=== PATIENT | female | born 1960 | race Caucasian/White ===

== ENCOUNTER 2020-06-08 19:29 | Emergency (ER) | payer MEDICARE ==
[2020-06-08 20:04] LABS: BASOPHIL 1.2 % (0-2); EOSINOPHIL 3.7 % (0-5); HCT 36.4 % (37.0-47.0); HGB 12.3 g/dl (12.5-16.0); MCH 29.6 pg (25.0-31.0); MCHC 33.8 g/dL (32.0-36.0); MCV 87.5 fL (78.0-100.0); MONOCYTE 10.7 % (0-12); NEUTROPHIL 51.1 % (41-80); NRBC 0; PLT 285 K/uL (150-400); RBC 4.16 M/uL (4.20-5.40); RDW 13.9 % (11.5-14.0); WBC 9.1 K/uL (4.0-10.5)
[2020-06-08 20:22] LABS: PROTHROMBIN TIME 12.5 SECONDS (11.4-13.6)
[2020-06-08 20:23] LABS: PTT 27.5 SECONDS (22.2-34.7)
[2020-06-08 20:30] LABS: ALBUMIN 3.2 g/dL (3.4-5.0); BILIRUBIN - TOTAL 0.2 mg/dL (0.2-1.0); BUN/CREAT RATIO (CALC) 8.6 RATIO; CREATININE 0.7 mg/dL (0.51-0.95); GLOBULIN (CALCULATION) 3.4 g/dL; POTASSIUM 3.8 mmol/L (3.5-5.1); TOTAL PROTEIN 6.6 g/dL (6.4-8.2)
[2020-06-08 20:35] LABS: LACTIC ACID 1.2 mmol/L (0.4-1.9)
[2020-06-08] MEDS ORDERED: NORCO 5-325 TA1 EACH PO (23:12)
== END 2020-06-08 23:41 | disposition home or self-care (01) ==
LOC: FER 19:29
PROVIDERS: Emergency Medicine Emergency Medical Services
DX: S02.31XA Fracture of orbital floor, right side, initial encounter for closed fracture (principal); R29.707 NIHSS score 7; I10 Essential (primary) hypertension; J44.9 Chronic obstructive pulmonary disease, unspecified; F17.200 Nicotine dependence, unspecified, uncomplicated; Z79.899 Other long term (current) drug therapy; Z86.73 Personal history of transient ischemic attack (TIA), and cerebral infarction without residual deficits; Z79.82 Long term (current) use of aspirin; W19.XXXA Unspecified fall, initial encounter; Y92.009 Unspecified place in unspecified non-institutional (private) residence as the place of occurrence of the external cause
CPT/HCPCS: 36415; 70450; 70486; 71045; 71250; 72125; 73560; 80053; 82550; 83605; 84484; 85025; 85610; 85730; 93005; J1885; J2270; J2405

== ENCOUNTER 2021-11-20 11:08 | Emergency (ER) | payer MEDICARE ==
[~2021-11-20 11:08] MED LIST: NORCO 5-325 TA1 EACH PO
[2021-11-20] MEDS ORDERED: MAXI-TUSS AC L473 ML PO (11:59)
[2021-11-20] MEDS ORDERED: PAXLOVID 150-11 EACH PO (11:59)
== END 2021-11-20 12:21 | disposition home or self-care (01) ==
LOC: FER 11:08
DX: U07.1 COVID-19 (principal); J44.9 Chronic obstructive pulmonary disease, unspecified; Z87.891 Personal history of nicotine dependence; Z88.8 Allergy status to other drugs, medicaments and biological substances
CPT/HCPCS: 71045